=== PATIENT | male | born 1995 ===

== ENCOUNTER 2017-03-13 00:23 | Emergency (ER) | payer OTHER ==
[2017-03-13 00:46] VITALS: O2SAT 100
[2017-03-13] MEDS ORDERED: diaZEpam 10 mg/2 ml Inj IVP ONE (00:47)
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
[2017-03-13] MEDS ORDERED: diaZEpam 10 mg/2 ml Inj ONE (01:01)
[2017-03-13] MEDS ORDERED: Propofol 10 mg/ml Inj (20 ML) IV ONE (01:25)
[2017-03-13] MEDS ORDERED: Sodium Chloride 0.9% 1,000 ML IV STA (01:26)
[2017-03-13] MEDS ORDERED: Propofol 10 mg/ml Inj (20 ML) ONE (01:43)
[2017-03-13 05:30] VITALS: TEMP 98.7
[2017-03-13 05:34] VITALS: BP 106/42; PULSE 95; RESP 16
--- NOTE | 2017-03-13 10:25 | RAD ---
PROCEDURE: Right shoulder dated 03/13/2017 HISTORY: post reduction films COMPARISON: Comparison made with earlier film same day TECHNIQUE: Single view right shoulder performed FINDINGS: Current study reveals interval reduction previously noted anterior inferior dislocated right humeral head no definitive evidence of acute displaced IMPRESSION: Fracture. Status post reduction previously noted anterior inferior dislocated right humeral head. No definitive acute displaced fracture. If symptoms persist consider followup CT scan or MRI.
--- NOTE | 2017-03-13 10:38 | RAD ---
PROCEDURE: Radiographs of the Right Shoulder HISTORY: r shoulder dislocation COMPARISON: Prior study available for comparison FINDINGS: BONES: No evidence of acute displaced fracture however there is anterior inferior dislocation of the right humeral head with respect to the glenoid. JOINTS: As above. No significant osteoarthritis. SOFT TISSUES: Normal. OTHER FINDINGS: None. IMPRESSION: Anterior inferior dislocation right humeral head
== END 2017-03-13 03:23 | disposition home or self-care (01) ==
LOC: H.ER 00:23
DX: S43.004A Unspecified dislocation of right shoulder joint, initial encounter (principal); X50.9XXA Other and unspecified overexertion or strenuous movements or postures, initial encounter; Y92.89 Other specified places as the place of occurrence of the external cause